=== PATIENT | male | born 1985 | race Caucasian/White ===

== ENCOUNTER → 2017-02-28 | Outpatient (CLI) | payer BC ==
--- NOTE | 2017-02-28 16:35 | DI ---
XR FINGERS MIN 2VW,02/28/2017 3:58 PM: Clinical History: Crush injury. Previous Exam: None at this facility. Findings: 3 views of the left index finger are obtained, and demonstrate a comminuted left second distal phalan geal fracture. There is soft tissue injury with involvement of the nail bed. Impression: Comminuted fracture of the left second distal phalanx.
== END ==
LOC: MOB RAD 15:59
PROVIDERS: ATTEND Physician Assistant
DX: S67.191A Crushing injury of left index finger, initial encounter (principal); S62.661A Nondisplaced fracture of distal phalanx of left index finger, initial encounter for closed fracture; W20.8XXA Other cause of strike by thrown, projected or falling object, initial encounter
CPT/HCPCS: 73140